=== PATIENT | male | born 1980 | race Caucasian/White ===

== ENCOUNTER 2018-02-26 09:47 | Emergency (ER) | payer OTHER, SELFPAY ==
[2018-02-26 10:04] VITALS: BP 116/75; PULSE 92; RESP 15; TEMP 36.7; O2SAT 97
--- NOTE | 2018-02-26 10:30 | ED.GENADUL_ITS ---
Disposition Clinical Impression: Pharyngitis Disposition: HOME Condition: Good Instructions: Pharyngitis (ED) Additional Instructions: Take medication as prescribed for peripheral vertigo doctor if not improving in approximately 1 week's time. Small, frequent sips of fluids and/or popsicles to maintain hydration. May use Tylenol and/or ibuprofen if needed for discomfort. Return to the emergency department for worsening or any other acute concerns. Prescriptions: Azithromycin [Azithromycin Pack #6] 250 mg PO DIRECTED #6 tablet Medical Decision Making - Lab Data POC Strep Test-LORENZO(Rapid) Start: 02/26/18 10: 09 Freq: .Rapid Strep Test Status: Active Document 02/26/18 10:10 [facility] (Rec: 02/26/18 10:10 [facility] [id number]) Strep test-LORENZO(Rapid)-POC POC-Strep test-LORENZO (Rapid) Positive - Medical Decision Making 37-year-old male with 2 days of recurrent pharyngitis and positive strep test, exam consistent with exudative pharyngitis. Recent treatment with penicillin, there may be a cycling of the infection in the home due to multiple sick contacts. Discussed this with the patient and his . We will treat with a course of azithromycin. A follow-up with primary care physician not improved in 1 week's time. History of Present Illness - General Chief complaint: Sorethroat Stated complaint: STREP? Time Seen by Provider: 02/26/18 10:28 Source: patient, RN notes reviewed Mode of arrival: ambulatory Limitations: no limitations - History of Present Illness Initial comments: 37-year-old male presents with 2 days of recurrent throat pain: He was recently treated for streptococcal pharyngitis, with recurrent sick contacts with family members, now with 2 days of recurrence mild, posterior throat pain is nonradiating constant, improved with fluids. No change to voice or ability to swallow. - Related Data Azithromycin [Azithromycin Pack #6] 250 mg PO DIRECTED #6 tablet 02/26/18 Allergies Allergy/AdvReac Type Severity Reaction Status Date / Time No Known Allergies Allergy Unverified 02/26/18 10:10 Review of Systems Other: 6 systems reviewed, otherwise negative General Exam - General Limitations: no limitations General appearance: alert - Head Head exam: Present: atraumatic - Eye Eye exam: Present: normal apperance, PERRL, EOMI - ENT ENT exam: Present: other (Bilateral pedal exudative pharyngitis with uvula that is midline, the exudate is scant, underlying erythema) - Neck Neck exam: Present: tenderness, full ROM, lymphadenopathy. Absent: meningismus - Respiratory Respiratory exam: Absent: respiratory distress - Neurological Exam Neurological exam: Present: alert, oriented X3 - Psychiatric Psychiatric exam: Present: normal affect, normal mood - Skin Skin exam: Present: warm, dry, intact Course Vital Signs - 24 hr 02/26/18 10:04 Temperature 36.7 C Pulse 92 H Respiratory 15 Rate Blood Pressure 116/75 Pulse Oximetry 97
== END 2018-02-26 10:35 | disposition home or self-care (01) ==
PROVIDERS: Emergency Provider Emergency Medicine; PCP Family Medicine
DX: J02.0 Streptococcal pharyngitis (principal)
CPT/HCPCS: 87880; 99283

== ENCOUNTER 2020-07-30 14:51 | Outpatient (REF) | payer OTHER, SELFPAY ==
[2020-07-30 21:31] LABS: Calculated LDL 158 mg/dL (<100); Cholesterol 220 mg/dL (<200); Glucose 86 mg/dL (74-106); HDL Cholesterol 48 mg/dL (40-60); Triglyceride 71 mg/dL (<150)
== END 2020-07-30 15:11 ==
LOC: NCHCN 14:51
PROVIDERS: PCP Family Medicine; Visit Provider Family Medicine
DX: R73.9 Hyperglycemia, unspecified (principal); E78.5 Hyperlipidemia, unspecified
CPT/HCPCS: 80061; 82947

== ENCOUNTER 2020-09-05 11:59 | Outpatient (CLI) | payer OTHER, SELFPAY ==
--- NOTE | 2020-09-05 10:45 | DI.RAD_ITS ---
EXAM: XR KNEE LT 3V AP,LAT,ELEAZAR CLINICAL HISTORY: L knee pain. TECHNIQUE: 2D digital imaging was performed. COMPARISON: CR LEFT ANKLE COMPLETE from 08/19/2016 FINDINGS: There is no evidence fracture although there does appear to be small joint effusion. There is eviden ce of prior ACL surgery. There are severe degenerative changes in the medial compartment and moderat e degenerative changes in the patellofemoral compartment. Mild degenerative changes in the lateral c ompartment. There also posteriorly located intra-articular calcified loose bodies. Largest of these measures approximately 10 by 7 millimeters. IMPRESSION: Previous surgery. Advanced degenerative changes. Small joint effusion DATA REPOSITORY: RADIATION DOSE DELIVERED:
== END 2020-09-05 12:00 | disposition home or self-care (01) ==
LOC: DIORS 11:59
PROVIDERS: PCP Family Medicine; Referring Provider Family Medicine; Visit Provider Physician Assistant
DX: M25.562 Pain in left knee (principal); M25.462 Effusion, left knee; M17.12 Unilateral primary osteoarthritis, left knee
CPT/HCPCS: 73562

== ENCOUNTER 2021-05-14 11:37 | Outpatient (CLI) | payer OTHER, SELFPAY ==
[2021-05-15 01:56] LABS: COVID-19 RT-PCR UVMMC Result Negative (Negative)
== END 2021-05-14 11:38 | disposition home or self-care (01) ==
PROVIDERS: PCP Family Medicine; Visit Provider Nurse Practitioner Family
DX: Z20.822 Contact with and (suspected) exposure to COVID-19 (principal)
CPT/HCPCS: U0003

== ENCOUNTER 2021-05-16 13:55 | Outpatient (CLI) | payer OTHER, SELFPAY ==
[2021-05-17 00:54] LABS: COVID-19 RT-PCR UVMMC Result Negative (Negative)
== END 2021-05-16 13:56 | disposition home or self-care (01) ==
LOC: LBO 13:55
PROVIDERS: PCP Family Medicine; Visit Provider Nurse Practitioner Family
DX: Z20.822 Contact with and (suspected) exposure to COVID-19 (principal)
CPT/HCPCS: U0003

== ENCOUNTER 2021-06-20 12:16 | Outpatient (CLI) | payer OTHER, SELFPAY ==
[2021-06-21 02:11] LABS: COVID-19 RT-PCR UVMMC Result Negative (Negative)
== END 2021-06-20 12:17 | disposition home or self-care (01) ==
LOC: LBO 12:19
PROVIDERS: PCP Family Medicine; Visit Provider Nurse Practitioner Family
DX: Z20.822 Contact with and (suspected) exposure to COVID-19 (principal)
CPT/HCPCS: U0003

== ENCOUNTER 2021-07-23 03:25 | Outpatient (CLI) | payer OTHER, SELFPAY ==
[2021-07-24 02:23] LABS: COVID-19 RT-PCR UVMMC Result Negative (Negative)
== END 2021-07-23 03:26 | disposition home or self-care (01) ==
LOC: LBO 03:25
PROVIDERS: PCP Family Medicine; Visit Provider Nurse Practitioner Family
DX: Z20.822 Contact with and (suspected) exposure to COVID-19 (principal)
CPT/HCPCS: U0003

== ENCOUNTER 2021-08-12 04:08 | Outpatient (CLI) | payer OTHER, SELFPAY ==
[2021-08-12 08:34] LABS: HCT 43.8 % (40.0-50.0); HGB 14.8 g/dL (13.5-17.5); MCH 28.8 pg (27.0-33.0); MCHC 33.8 % (32.0-36.0); MCV 85.4 fL (80-95); Platelet Count 281 10^3/uL (130-400); RBC 5.13 10^6/uL (4.36-5.78); RDW 12.6 % (11.8-14.1); RDW-SD 39.5 fL; WBC 4.59 10^3/uL (4.4-10.8)
[2021-08-12 09:46] LABS: ALT 31 U/L (16-63); AST 15 U/L (15-37); Albumin 3.7 g/dL (3.4-5.0); Alkaline Phosphatase 63 U/L (46-116); Bilirubin, Total 0.6 mg/dL (0.2-1.0); Calculated LDL 137 mg/dL (<100); Cholesterol 194 mg/dL (<200); HDL Cholesterol 47 mg/dL (40-60); Total Protein 7.4 g/dL (6.4-8.2); Triglyceride 54 mg/dL (<150)
[2021-08-12 09:57] LABS: Bilirubin, Direct 0.1 mg/dL (0.0-0.2)
== END 2021-08-12 04:09 | disposition home or self-care (01) ==
LOC: LBO 04:09
PROVIDERS: PCP Family Medicine; Visit Provider Family Medicine
DX: E78.5 Hyperlipidemia, unspecified (principal); R53.83 Other fatigue; G72.89 Other specified myopathies
CPT/HCPCS: 36415; 80061; 80076; 85027

== ENCOUNTER 2021-12-24 11:49 | Outpatient (REF) | payer OTHER, SELFPAY ==
[2021-12-26 11:33] LABS: COVID-19 RT-PCR UVMMC Result Positive (Negative)
== END 2021-12-24 11:50 | disposition home or self-care (01) ==
LOC: LBO 11:49
PROVIDERS: PCP Family Medicine; Visit Provider Nurse Practitioner Family
DX: Z20.822 Contact with and (suspected) exposure to COVID-19 (principal)
CPT/HCPCS: U0003

== ENCOUNTER 2022-03-25 13:16 | Outpatient (CLI) | payer OTHER, SELFPAY ==
--- NOTE | 2022-03-25 13:00 | DI.RAD_ITS ---
Exam(s) XR KNEE RT 3V AP,LAT,ELEAZAR EXAM: XR KNEE RT 3V AP,LAT,ELEAZAR CLINICAL HISTORY: right knee pain. TECHNIQUE: 2D digital imaging was performed of the right knee. Three views obtained. AP, lateral, a nd Merchant views were obtained. COMPARISON: No previous for comparison. FINDINGS: BONES: No acute fracture is present. No bony destructive lesion is seen. JOINTS: Mild narrowing of the medial femoral tibial joint. Periarticular spurring is seen involving all 3 joint compartments. No joint effusion is seen. SOFT TISSUE: Normal. IMPRESSION: Mild degenerative changes of the right knee. DATA REPOSITORY: RADIATION DOSE DELIVERED:
== END 2022-03-25 13:17 | disposition home or self-care (01) ==
LOC: DIORS 13:17
PROVIDERS: PCP Family Medicine; Visit Provider Student in an Organized Health Care Education/Training Program
DX: M25.561 Pain in right knee (principal); M17.11 Unilateral primary osteoarthritis, right knee
CPT/HCPCS: 73562

== ENCOUNTER 2023-05-04 02:27 | Outpatient (CLI) | payer OTHER, SELFPAY ==
[2023-05-04 08:04] LABS: Calculated LDL 159 mg/dL (<100); Cholesterol 224 mg/dL (<200); Glucose 102 mg/dL (74-106); HDL Cholesterol 48 mg/dL (40-60); Triglyceride 86 mg/dL (<150)
== END 2023-05-04 02:28 | disposition home or self-care (01) ==
LOC: LBO 02:27
PROVIDERS: PCP Family Medicine; Visit Provider Family Medicine
DX: E78.5 Hyperlipidemia, unspecified (principal); R73.9 Hyperglycemia, unspecified
CPT/HCPCS: 36415; 80061; 82947

== ENCOUNTER 2023-07-02 09:20 | Outpatient (CLI) | payer OTHER, SELFPAY ==
--- NOTE | 2023-07-02 08:30 | DI.RAD_ITS ---
Exam(s) XR KNEE LT 2V AP,LAT EXAM: XR KNEE LT 2V AP,LAT CLINICAL HISTORY: eval L knee pain. TECHNIQUE: 2D digital imaging was performed. Three views. COMPARISON: CR XR KNEE LT 3V AP,LAT,ELEAZAR from 09/05/2020 CR XR KNEE RT 3V AP,LAT,ELEAZAR from 03/25/2022 FINDINGS: BONES: No acute fracture is present. No bony destructive lesion is seen. Postsurgical lucency in p roximal tibia. JOINTS: Severe narrowing of the medial femoral tibial joint space. Periarticular spurring. Mild beatrice us angulation. Posterior and medial calcifications again noted. Spurring at the superior aspect of the patella. No joint effusion is seen. SOFT TISSUE: Normal. IMPRESSION: Severe degenerative changes of the medial femoral tibial joint. DATA REPOSITORY: RADIATION DOSE DELIVERED:
--- NOTE | 2023-07-02 08:30 | DI.RAD_ITS ---
Exam(s) XR STANDING ALIGNMENT EXAM: XR STANDING ALIGNMENT CLINICAL HISTORY: eval L knee. TECHNIQUE: 2D digital imaging was performed. Standing AP views were performed from the pelvis throu gh the ankles. COMPARISON: CR XR KNEE RT 3V AP,LAT,ELEAZAR from 03/25/2022 CR XR KNEE LT 2V AP,LAT from 07/02/2023 FINDINGS: Exam limited by patient body habitus. BONES: No acute fracture is present. No bony destructive lesion is seen. Leg length discrepancy: No significant overall leg length discrepancy. JOINTS: Knees: There degenerative changes of the medial femoral tibial joint spaces of both knees, le ft greater than right. Bilateral varus angulation. The ankle joints are unremarkable. The hip joints are unremarkable. SOFT TISSUE: Venous varicosities medial left leg. Mild edema in lower legs. IMPRESSION: Severe degenerative changes of the medial femoral tibial joint spaces of both knees, left greater th an right. No significant leg length discrepancy. DATA REPOSITORY: RADIATION DOSE DELIVERED:
== END 2023-07-02 09:21 | disposition home or self-care (01) ==
LOC: DIORS 09:20
PROVIDERS: PCP Family Medicine; Visit Provider Student in an Organized Health Care Education/Training Program
DX: M17.12 Unilateral primary osteoarthritis, left knee (principal)
CPT/HCPCS: 73560; 77073

== ENCOUNTER 2023-07-07 04:20 | Outpatient (CLI) | payer OTHER, SELFPAY ==
[2023-07-07 08:32] LABS: HCT 44.1 % (40.0-50.0); HGB 15.1 g/dL (13.5-17.5); MCH 29.4 pg (27.0-33.0); MCHC 34.2 % (32.0-36.0); MCV 86 fL (80-95); MPV 9.3 fL (8.0-11.0); Platelet Count 297 10^3/uL (130-400); RBC 5.14 10^6/uL (4.36-5.78); RDW 13.2 % (11.8-14.1); RDW-SD 41.5 fL; WBC 6.35 10^3/uL (4.4-10.8)
[2023-07-07 08:52] LABS: Calculated LDL 150 mg/dL (<100); Cholesterol 218 mg/dL (<200); HDL Cholesterol 51 mg/dL (40-60); Triglyceride 85 mg/dL (<150)
[2023-07-07 08:54] LABS: Hemoglobin A1C 5.5 % (<5.7)
[2023-07-07 08:57] LABS: Anion Gap 4.8 mmol/L (3-11); BUN 14 mg/dL (7-18); CO2 30.2 mmol/L (21.0-32.0); CREATININE 0.9 mg/dL (0.70-1.30); Chloride 103 mmol/L (98-107); Estimated GFR 110.04 (mL/min/1.73m2); Glucose 109 mg/dL (74-106); Sodium 138 mmol/L (136-145)
== END 2023-07-07 04:21 | disposition home or self-care (01) ==
LOC: LBO 04:21
PROVIDERS: PCP Family Medicine; Visit Provider Student in an Organized Health Care Education/Training Program
DX: E11.51 Type 2 diabetes mellitus with diabetic peripheral angiopathy without gangrene (principal); E78.5 Hyperlipidemia, unspecified; M17.12 Unilateral primary osteoarthritis, left knee; Z01.818 Encounter for other preprocedural examination
CPT/HCPCS: 36415; 80048; 80061; 85027; 83036

== ENCOUNTER 2023-07-20 07:17 | Day surgery (SDC) | payer OTHER, SELFPAY ==
[2023-07-20] VITALS (9 sets, daily range): BP systolic 103–168; BP diastolic 55–98; PULSE 66–89; RESP 12–20; TEMP 36.1–37; O2SAT 95–98; BMI 50.3
--- NOTE | 2023-07-20 07:34 | PDOC.DSDIS_ITS ---
Date of service: 07/20/23 Time of Service: 10:46 Discharge Plan Disposition Patient Disposition: Home Condition: Good Discharge Details Reason For Visit: Left knee DJD Attending Provider: Refugio Ferrer Primary Care Provider: Mikel Cotton Home Meds and New Rx's Prescriptions: New celecoxib [Celebrex] 200 mg capsule 200 mg PO BID PRNQty: 60 0RF Rx Instructions: Take one tablet twice daily for pain and inflammation aspirin 81 mg tablet,delayed release (DR/EC) 81 mg PO BID 30 Days Qty: 60 0RF acetaminophen 500 mg tablet 1,000 mg PO Q8H PRN Qty: 90 0RF Rx Instructions: Take two tablets up to every 8 hours as needed for pain pantoprazole 40 mg tablet,delayed release (DR/EC) 40 mg PO DAILY 14 Days Qty: 14 0RF dexamethasone 4 mg tablet 4 mg PO DAILY Qty: 2 0RF Rx Instructions: Take one tablet once daily for two days docusate sodium [Colace] 100 mg capsule 100 mg PO BID Qty: 30 0RF gabapentin 300 mg capsule 300 mg PO QHS Qty: 14 0RF Rx Instructions: Take one tablet at bedtime oxycodone 5 mg tablet 5 mg PO Q4H PRNQty: 18 0RF Rx Instructions: Take one tablet up to every 4 hours as needed for severe postoperative pain Continued albuterol sulfate 90 mcg/actuation HFA aerosol inhaler 2 puff inhalation Q6H PRN Wegovy 0.25 mg/0.5 mL pen injector 0.25 mg subcut QWEEK Qty: 2 0RF Patient Comments: PT STATES HE HAS NOT STARTED TAKING THIS MEDICATION OF 07/16/23 Rx Instructions: administer weeks 1 through 4 of therapy Discharge Instructions Additional Instructions: Total Knee Discharge Instructions Activity: The most important activity is to walk and to work on gentle motion (both flexion and extension). You should try to take short walks a few times a day. It is important that when resting you work on keeping the knee straight. Avoid putting a pillow behind the knee as this will encourage flexion. Work on range of motion exercises as provided by Physical Therapy. - Start outpatient physical therapy within 2 weeks. - You should wear the BLAS hose on both legs for 2 weeks. You may remove these at night. You may also use any compression sock in place of the BLAS hose. - Utilize [employer] to review exercises, see videos on exercises and obtain basic information pertaining to your surgery and your recovery. Dressing: Remove the Davey wrap by 2 days after your surgery and put on the BLAS stocking given to you from the hospital. Keep the surgical dressing (underneath the DAVEY wrap) in place for at least one week. After the first week it may be removed and replaced with light gauze and tape or nothing. The wound and dressing may get wet after 3 days but avoid soaking the dressing or otherwise it will need to be changed. Many people prefer covering the dressing with cling wrap (saran wrap) to minimize it from getting soaked. If it gets wet, just pat dry. If it starts to peel off then it will need to be changed. Medications: - You should take Tylenol and anti-inflammatory Celebrex as your primary pain control medications. If the Celebrex is too expensive or not covered, please call the office for another alternative (Advil/Ibuprofen or Naproxen/Aleve) - You have been prescribed a stronger pain medication Oxycodone for breakthrough pain, take as needed as prescribed. - You have also been prescribed a stomach acid reduction agent Pantoprozole to help reduce stomach acid and reflux. - You have been prescribed Gabapentin to take at night for restlessness and nerve pain. - You will be taking Aspirin 81mg twice a day for DVT prevention unless instructed otherwise. - You have also been prescribed Decadron to take to control post-operative nausea and pain. You will start this tomorrow. - If you have constipation you should take Colace (which has been prescribed) or Miralax (which is available [id number]). It takes most people 3-4 days to have a bowel movement. Follow-up: 2 weeks If you have any acute concerns or questions, please do not hesitate to contact the office at [phone]. You may contact Dr. Ferrer with any questions after hours through the hospital at [phone] or on his cell phone at [phone]. Stand Alone Forms: Anesthesia Discharge Inst., Layla Santos (U) Referrals: Refugio Ferrer MD [ [facility] STAFF PHYSICIAN] - Equipment/Supplies: Walker Activity:: Elevate Remove Dressings/Wound Care:: Do Not Remove Shower/Bathe:: 72 hours and Cover Diet:: As Tolerated Discharge Orders Discharge Orders: Discharge Order (Routine); Ordered 07/20/23 Ordered By: Shania Carreno
[2023-07-20] MEDS: Gabapentin 300 MG CAP PO (08:23)
[2023-07-20] MEDS: Acetaminophen 500 MG TAB 1000 MG PO (08:24)
[2023-07-20] MEDS: Celecoxib 200 MG CAP 400 MG PO (08:24)
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
[2023-07-20] MEDS: Lactated Ringers 1,000 ML 80 ML IV (08:50)
[2023-07-20] MEDS: ceFAZolin 3,000 MG in Normal Saline 100 ML 200 MG IVPB (09:06)
--- NOTE | 2023-07-20 11:50 | W.PM.OP ---
Date of service: 07/20/23 Time of Service: 09:35 Operative Note Operative Note DATE OF PROCEDURE: 07/20/23 PRE-OP DIAGNOSIS: Left Knee Post-traumatic arthritis POST-OP DIAGNOSIS: same PROCEDURE: Left Total Knee Replacement with Intraoperative Navigation SURGEON: Refugio Ferrer ANGIOGRAPHY TECHNOLOGIST: Shania Carreno ANESTHESIA TYPE: Spinal Refer to Anesthesia Record ESTIMATED BLOOD LOSS: 350 PATHOLOGY: none sent TOURNIQUET TIME: 0 COMPLICATIONS: None Patient was transported to: PACU Patient's condition: stable Implants: 1. Depuy Attune Cementless Cruciate Retaining Femoral Component, Size 8 2. Depuy Attune Cementless Fixed Bearing Tibial Component, Size 7 3. Depuy Attune 8x7 CR/FB Poly 4. Depuy Attune Patellar Component, Size 38 Indications: I have seen Pedro in clinic for symptoms of LEFT knee arthritis, confirmed with radiographic findings. Pedro has exhausted nonoperative methods and was having significant limitations in daily function and desired better function and less pain. I discussed the technical details of a knee replacement. I explained the risks of the procedure to include, but not limited to, bleeding, infection, pain, stiffness, fracture, damage to nerves and vessels, damage to muscles and tendons, loosening, need for repeat procedure, blood clot and cardiopulmonary demise. We have a long discussion about his weight. He has made progress with some recent weight loss but is limited with all activity due to the left knee. Despite these risks, Pedro elected to proceed. Findings: There was significant signs of arthritis throughout the knee. There is notable scarring of the medial soft tissues about the knee with large osteophytes. Procedure Description: Pedro was greeted in the preoperative holding area where the correct side was identified and marked. The consent was reviewed with the patient and signed. The history and physical was updated. All questions were answered. Preoperative mediacations were administered: Acetaminophen 1000mg, Celebrex 400mg, and Gabapentin 300mg. An adductor canal block was then administered by the anesthesia team in the PACU. Pedro was taken back to the operating room. A general anesthestic was then administered. The patient was placed into the supine position on the operating room table. A nonsterile tourniquet was placed high onto the leg. Posts were placed for positioning during the procedure. All bony prominences were well padded. Prophylactic antibiotics in the form of Cefazolin were administered. 1g of Tranxemic Acid was given intravenously within 30 minutes of incision. The left leg was then prepped with Chloraprep and draped in a standard fashion with impervious stockinette. A second prep with Chloraprep was performed prior to application of Iodine impregnated skin protection. A timeout to confirm correct identity, side and site, procedure, allergies, anesthesia, and medical concerns was performed. With the knee in some flexion, a midline incision was made overlying the knee. Full thickness skin flaps were raised once the extensor mechanism was encountered. These were raised medially and laterally. Any bleeding was controlled with electrocautery. Once the extensor mechanism was fully exposed, a medial parapatellar arthrotomy was performed in a flexed position. All bleeding from the arthrotomy and the geniculate arteries was coagulated. A medial subperiosteal peel was performed with electrocautery to the midcoronal plane. Due to the significant varus deformity the entire medial tibial plateau was exposed. The fat pad was removed while keeping the patellar tendon protected. The anterior distal femur synovium was removed for later visualization. The ACL and PCL were resected and the anterior horn of the lateral meniscus was transected. The knee was then flexed with the patella everted. Large osteophytes from the tibia were removed. Large osteophytes from the femur were removed. A single starting pin was then placed 1cm anterior to the PCL insertion and the notch in the direction of the femoral head. The OrthoAlign device was applied over the pin. It was oriented to be in line with the epicondylar axis and the trochlear groove. It was then pinned into place. The navigation computer was then turned on and calibrated. The distal femur cut was set at 1 degrees varus and 3.5 degrees flexion. The distal femur cutting guide then was positioned for a 9mm cut. The distal femur was cut with an oscillating saw while protecting the soft tissues. The tibia was then addressed. The OrthoAlign device was placed over the tibial tubercle and medial tibia and secured into position. Once again, OrthoAlign was calibrated and then set for a 2 degree varus cut and 5 degrees of posterior slope. With this locked into position, the cut thickness stylus was used to assess cut thickness. The medial side, most involved side, was set for a 3mm cut. This was then held in position and pinned into place with 2 additional pins and a cross pin for stability. The medial and lateral collateral ligaments were protected and the cut was performed. With this completed, it was assessed and noted to be of appropriate dimensions. The guide and OrthoAlign was removed. A spacer block was inserted and the knee was brought into extension to ensure enough space was present. . The Orthoalign gap balancing device was then placed in extension. This was used to ensure that the ligaments were properly balanced with up to 2 to 3 mm laxity laterally compared medially. The extension gap was measured as 17mm. The knee was then brought into 90 degrees of flexion and the ligament product/device technologist was once again placed. Under the same amount of force the flexion gap was measured. The Attune specific jig was placed and the flexion gap was made to match the extension gap. The femur was then sized as a size 8. The 4-in-1 cutting guide was the placed. An alex wing was used to confirm appropriate position of the anterior cut to avoid notching. This cutting guide was ensured to be flush on the cut surface and then pinned into place with headed pins. While protecting the soft tissues, quad tendon, and collateral ligaments, the anterior and posterior cuts were performed with a saw. The central two pins were removed and the posterior and anterior chamfers were cut next. The notch-cutting guide was placed. This was pinned to lateralize the femoral component as much as possible while keeping it flush on the cut surface. This was then pinned into position. A saw was used to make the notch cut. A rasp smoothed the cut surfaces. The medial and lateral menisci were removed. A trial femoral component was then inserted, impacted down to the cut surfaces, and the lug holes were drilled. A provisional trial tibial component was placed and the knee was brought through range of motion. The polyethylene was trialed until there was good flexion and extension with excellent stability to the medial and lateral collaterals. The patella was tracking without thumbs. A size 7mm polyethylene component provided the best range of motion and stability with less than 2mm gapping with medial and lateral stress and full extension without significant hyperextension. The tibial cut surface was fully exposed. The tibia was then sized as a 7. The tibia had been previously marked during trialing to correspond to the center of the tibial component to help with rotation. The trial was aligned to this zahra, approximately rotated to the medial 1/3rd of the tibial tubercle. The trial was pinned into place. The tibia was prepared with a reamer and a keel punch and lug holes. The knee was then brought into extension and the patella was measured as 25mm. Using the patellar clamp and cut guide, this was resected to a flat surface with at least 13mm of thickness remaining. The size 38 patella fit the best. This was oriented and then clamped into position. The lugs were drilled. The trial components were removed. The final components were opened on the back table. The periosteal and capsular tissues, especially posteriorly, around the knee were then systematically injected with a periarticular cocktail consisting of 246mg of Ropivacaine, 0.5mg of Epinephrine, 0.08mg of Clonidine, and 30mg of Ketorolac, diluted to 100cc. On the back table, with the implants opened, the cement was mixed. One batch of high viscosity cement was prepared with vacuum assistance. After the cement was ready a small amount was placed on the cut surface of the patella and the patellar button was clamped into position and held. While the cement was hardening, the cementless knee components were placed. Starting with the tibial component, the tibia was subluxed anteriorly and the lug holes of the component were lined up. The tibia was then impacted with an impactor and mallet until the tibial component was in contact with the tibia. Then, the femoral component was inserted. The lug holes were aligned and the component was impacted into position. The final polyethylene component was inserted. The knee was irrigated with Irrisept chlorhexadine solution. This was allowed to sit in the knee for 3 minutes and then it was thoroughly irrigated out with saline. After the cement had finally cured, approximately 15min, the clamp was removed from the patella and the knee was taken through range of motion. The patella was tracking with a no-thumbs technique. The capsule was then reapproximated with a No. 1 Vicryl at multiple locations. The capsule was finally closed with a No. 2 Stratafix, barbed suture. Deep tissues were then reapproximated with 0 Vicryl and 2-0 Monocryl. The skin was closed with a running 3-0 Monocryl in a subcuticular fashion. This was reinforced with skin glue. A Mepilex silver dressing was applied along with a [id number] MEHNAZ wrap. A CryoCuff was applied. Pedro was transferred to the hospital bed without difficulty an suffering no apparent complication. Pedro has a good prognosis. Physical therapy will start today and without restrictions, weight-bearing as tolerated. Aspirin 81mg BID will be used for DVT prophylaxis.
[2023-07-20] MEDS: Normal Saline Flush 10 ML SYR IV (11:54)
[2023-07-20] MEDS: fentaNYL 100 MCG/2 ML VIAL IVP ×3 (11:54→12:15)
[2023-07-20] MEDS: oxyCODONE 5 MG TAB PO (12:50)
--- NOTE | 2023-07-20 14:10 | W.ANESPOSTOP ---
Postoperative Evaluation Date, Time and Location Date Performed: 07/20/23 Time Performed: 13:45 Patient Location: Day Surgery Unit Vital Signs Most Recent Imported Vital Signs: Most Recent Vital Signs Temp Pulse Resp BP Pulse Ox 36.5 C 89 18 125/75 95 07/20/23 13:11 07/20/23 13:11 07/20/23 13:11 07/20/23 13:11 07/20/23 13:11 Pain Score Most Recent Pain Score: Most Recent Pain Score Pain Level 3 07/20/23 13:11 Assessment Mental Status: Awake (Alert & Oriented to Patient Baseline) Airway and Respiratory Function: Patent airway with normal (patient baseline) respiratory exam Cardiovascular Function: Hemodynamically Stable Hydration Status: Adequately Hydrated Nausea & Vomiting: No Nausea or Vomiting Pain: Pain is tolerable per patient Peripheral Nerve Block: Patient did not receive a nerve block
--- NOTE | 2023-07-20 17:24 | IN_ITS ---
PT Notes Visit Reasons: Left knee DJD Physical Therapy Day Surgery Initial Evaluation Date: 07/20/2023 Referring Doctor: CARIN Lui PT Orders: PT CONSULT: S/P Ortho Surgery Precautions: WBAT on the L LE with AD. Patient Profile/Admitting Diagnosis: Rao is a 42-year-old male with posttraumatic arthritis of the left knee and is status post left total knee arthroplasty on postoperative day 0. PMHX: All Active Problems Osteoarthritis of left knee (Acute) DEPO MEDROL 04/15/23 Osteoarthritis of right knee (Acute) Steroid injection: 03/25/2022 Post-traumatic osteoarthritis of left knee (Acute) Lumbago (Acute) Surgical History S/P ACL reconstruction LEFT Social History/Home Situation: Lives with Amanda in a private home with 3 steps to enter with a rail on the right side going up. Independent with all aspects of ADLs prior to surgery although had increasing difficulty with mobility ADL performance due to ongoing arthritic process. is a good support. Equipment Owned/DME: Bilateral axillary crutches Subjective: Reported 5/10 pain in the L knee with small-range straight leg raise. 2/10 in same area with ambulation. No chest pain, headache, lightheadedness throughout session. Objective: General Observation: Davey wrap's to left LE. Cryocuff to left knee. TEDS to right leg. High BMI. Mental Status: A and O x 4 Pain: As above ROM: Right Lower Extremity: Hip flexion WFL. Hip abduction WFL. Knee flexion WFL. Ankle dorsiflexion WFL. Ankle plantarflexion WFL. Left Lower Extremity: Hip flexion WFL. Hip abduction WFL. Knee flexion 10 degrees to 9 degrees actively. Knee extension -10 degrees ankle dorsiflexion WFL. Ankle plantarflexion WFL. Strength: Right Lower Extremity: Hip flexors 5/5. Hip abductors 5/5. Knee flexors 5/5. Knee extensors 5/5. Ankle dorsiflexors 5/5. Ankle plantarflexors 5/5. Left Lower Extremity: Hip flexors 4/5. Hip abductors 4/5. Knee flexors 3-/5. Knee extensors 3-/5. Ankle dorsiflexors 5/5. Ankle plantarflexors 5/5. Sensation: Intact as to pain and light pressure in B LE Bed Mobility/Transfers: Minimal cueing provided for use of B hands as needed for support, movement sequence, Ad management, and and posture to reduce fall risk and minimize pain report. Supine to sit stand by assist Sit to stand contact guard assist Stand to sit stand by assist Bed to chair stand by assist Gait: Facilitated safe and correct performance of level surface ambulation covering a distance of 150 feet using front-wheeled walker with standby assist and wheelchair follow with Nurse Dowd. Minimal minimal verbal cueing provided for reciprocal step through heel toe gait pattern, AD management, and posture to minimize fall risk and reduce pain report. Stairs: Guided patient with safe and correct negotiation of 3 x 4 inch steps and 2 x 6 inch steps while holding onto 1 rail and using a single-point cane with the other hand requiring contact-guard assist and minimal verbal cueing for limb but sequence, increased knee flexion on the left during each ascent, and overall safety to minimize fall risk and reduce pain report. Balance: Static Sitting: Normal Dynamic Sitting: Normal Static Standing: Fair Dynamic Standing: Fair Special Tests: Mobility Limitations Standardized Measure [facility] AM-PAC 6 clicks Basic Mobility Inpatient Short Form: Raw Score: 22 CMS Score: 21% deficit Informed Consent/Education: Patient instructed in purpose of PT consult. Packet containing TKA exercise protocol has been given to patient. Education and training on initial set of exercises that can be done at home have been completed with patient. Trained patient with correct performance of exercises below to maximize motor control, joint flexibility, soft tissue extensibility of the L knee musculature: Access Code: [email or web address] URL: [email or web address] Date: 07/20/2023 Prepared by: Althea Herr Exercises - Supine Quad Set - 1 x daily - 7 x weekly - 1 sets - 10 reps - 5 hold - Supine Heel Slide - 1 x daily - 7 x weekly - 1 sets - 10 reps - 5 hold - Supine Ankle Pumps - 1 x daily - 7 x weekly - 1 sets - 10 reps - 5 hold - Small Range Straight Leg Raise - 1 x daily - 7 x weekly - 1 sets - 10 reps - 5 hold - Seated September - x daily - 7 x weekly - 1 sets - 10 reps - 5 hold Assessment: Patient requires use of a front wheeled walker for all mobility ADL performance to reduce fall risk and maximize independence. Patient presents with clinical signs and symptoms consistent with current/admitting diagnoses that have resulted to mobility limitations, gait instability, generalized weakness, and impairment of motor control as demonstrated by the following impairment level findings: 1. Decreased strength to left knee major muscle groups 2. Impaired standing balance 3. Limitation of joint range of motion in left knee Impairments are contributing to the following functional limitations: 1. Inability to safely ambulate without assistive device 2. Increase completion time for mobility ADL performance 3. Increased fall risk Patient is assessed as a 92249 moderate complexity based on the following: History: 42-year-old male with impairment level findings, functional limitations, and past medical history as indicated above Examination: Demonstrable impairment in strength, balance, and mobility level with underlying impairments and functional limitations as documented above Presentation: Evolving [employer] moderate compexity Goals: N/A. PT evaluation and 1-2 treatment sessions only for functional mobility training using recommended AD and for HEP instruction. Plan of Care/Treatment Plan: N/A. PT evaluation and 1-2 treatment session only for functional mobility training using recommended AD and for HEP instruction. DISCHARGE RECOMMENDATIONS: Home when medically cleared by orthopedic surgeon. Recommend outpatient PT services in order to optimize functional mobility outcomes and facilitate return to independent community ambulation without an assistive device. TREATMENT CODE/TIME: 84511 x 20 minutes for 1 unit, 9753 0 x 12 minutes for 1 unit beginning at 13:27 PM. Thank you for the opportunity to participate in the care of this patient. Althea Herr PT, DPT, CLT [facility] [place], [place] Please sign an return this page within 30 days if you agree with the above POC. Thank you! Physician Signature Date [facility]
== END 2023-07-20 14:20 | disposition home or self-care (01) ==
PROVIDERS: PCP Family Medicine; Visit Provider Student in an Organized Health Care Education/Training Program
PROC: (CPT 27447; principal; 2023-07-20 09:30)
DX: G47.30 Sleep apnea, unspecified; M17.32 Unilateral post-traumatic osteoarthritis, left knee; Z87.891 Personal history of nicotine dependence; M54.50 Low back pain, unspecified
CPT/HCPCS: 27447; 20985; 97162; 97530; C1776; J0690; J1100; J2001; J2405; J2704; J3010

== ENCOUNTER 2023-08-02 15:22 | Outpatient (CLI) | payer OTHER, SELFPAY ==
--- NOTE | 2023-08-02 14:30 | DI.RAD_ITS ---
Exam(s) XR KNEE LT 1V EXAM: XR KNEE LT 1V CLINICAL HISTORY: 1ST POST OP L TKA. TECHNIQUE: 2D digital imaging was performed. COMPARISON: CR XR KNEE LT 2V AP,LAT from 07/02/2023 FINDINGS: Single lateral view: This single lateral view of the left knee reveals satisfactory position alignment of the components o f the recently placed prosthesis. No fractures nor loosening evident. IMPRESSION: Satisfactory appearance of the prosthesis on this single lateral view. DATA REPOSITORY: RADIATION DOSE DELIVERED:
--- NOTE | 2023-08-02 14:30 | DI.RAD_ITS ---
Exam(s) XR STANDING ALIGNMENT EXAM: XR STANDING ALIGNMENT CLINICAL HISTORY: 1ST POST OP L TKA. TECHNIQUE: 2D digital imaging was performed. COMPARISON: CR XR STANDING ALIGNMENT from 07/02/2023 FINDINGS: 3 views There has been interval placement of a left knee prosthesis which appears satisfactory. Advanced [id number] narrowing of the medial compartment of the opposite-right knee is again noted. The lateral compartment of the right knee exhibits preserved height. Both hips appear unremarkable as do the ankles. IMPRESSION: As above. DATA REPOSITORY: RADIATION DOSE DELIVERED:
== END 2023-08-02 15:23 | disposition home or self-care (01) ==
LOC: DIORS 15:23
PROVIDERS: PCP Family Medicine; Visit Provider Student in an Organized Health Care Education/Training Program
DX: Z96.652 Presence of left artificial knee joint (principal); Z47.1 Aftercare following joint replacement surgery
CPT/HCPCS: 73560; 77073

== ENCOUNTER 2024-07-24 15:51 | Outpatient (CLI) | payer OTHER, SELFPAY ==
--- NOTE | 2024-07-24 10:00 | DI.RAD_ITS ---
Exam(s) XR KNEE LT 2V AP,LAT EXAM: XR KNEE LT 2V AP,LAT CLINICAL HISTORY: ANNUAL F/U L TKA. TECHNIQUE: 2D digital imaging was performed. Two images were obtained. AP and lateral views were ob tained. COMPARISON: CR XR KNEE LT 2V AP,LAT from 07/02/2023 CR XR KNEE LT 1V from 08/02/2023 CR XR STANDING ALIGNMENT from 08/02/2023 FINDINGS: BONES: There are stable post operative changes of a left total knee arthroplasty present. No fractur e or dislocation. Soft tissue calcifications are again seen adjacent to both the medial femoral condy le and the medial tibial plateau which are old. JOINTS: The orthopedic hardware is in good position. No evidence of hardware loosening. SOFT TISSUE: Normal. IMPRESSION: Stable left total knee arthroplasty. DATA REPOSITORY: RADIATION DOSE DELIVERED:
== END 2024-07-24 15:52 | disposition home or self-care (01) ==
LOC: DIORS 15:51
PROVIDERS: PCP Family Medicine; Visit Provider Student in an Organized Health Care Education/Training Program
DX: Z96.652 Presence of left artificial knee joint (principal); Z47.1 Aftercare following joint replacement surgery
CPT/HCPCS: 73560

== ENCOUNTER 2025-01-17 07:38 | Outpatient (CLI) | payer OTHER, SELFPAY ==
[2025-01-17 10:16] LABS: Calculated LDL 169 mg/dL (<100); Cholesterol 236 mg/dL (<200); HDL Cholesterol 49 mg/dL (>or=40); Triglyceride 93 mg/dL (<150)
[2025-01-17 10:23] LABS: Hemoglobin A1C 5.4 % (<5.7)
[2025-01-29 09:16] LABS: Testosterone, Free 7.67 ng/dL (4.46-17.1)
== END 2025-01-17 07:39 | disposition home or self-care (01) ==
LOC: LBO 07:39
PROVIDERS: PCP Family Medicine; Visit Provider Family Medicine
DX: R53.83 Other fatigue (principal); R73.9 Hyperglycemia, unspecified; E78.5 Hyperlipidemia, unspecified
CPT/HCPCS: 36415; 80061; 84402; 84403; 83036